=== PATIENT | female | born 2000 | race African-American/Black ===

== ENCOUNTER 2023-10-28 00:13 | Emergency (ER) | payer SELFPAY ==
[2023-10-28] MEDS ORDERED: Lidocaine 1% (PF) 30 ML VIAL ONE (00:22)
[2023-10-28] MEDS ORDERED: Boostrix 0.5 ML (Tdap) VIAL (>/=7 yrs of age) ONE (00:52)
[2023-10-28] MEDS ORDERED: Bacitracin 1 PK ONE (01:08)
[2023-10-28] MEDS ORDERED: Sterile Water 10 ML ONE (01:26)
[2023-10-28] MEDS ORDERED: cefTRIAXone (ROCEPHIN) 1 GM VIAL ONE (01:27)
== END 2023-10-28 01:58 | disposition home or self-care (01) ==
LOC: MADERS 00:13
DX: S21.211A Laceration without foreign body of right back wall of thorax without penetration into thoracic cavity, initial encounter (principal); Z23 Encounter for immunization; W26.0XXA Contact with knife, initial encounter
CPT/HCPCS: 12002; 90471; 90715; 96372; J0696; J2001